=== PATIENT | male | born 1980 | race Caucasian/White ===

== ENCOUNTER 2017-09-28 08:22 | Inpatient (IN) | payer MEDICARE, OTHER ==
[2017-09-28] VITALS (10 sets, daily range): BP systolic 114–158; BP diastolic 60–91
[~2017-09-28] VITALS: Ht 170.2 cm; Wt 61.7 kg
--- NOTE | 2017-09-28 08:30 | NUR ---
aaox3, BBRA FROM HOME FOR N/V X THIS AM, BS-464. tachypneic. Skin is dry. Placed on monitor and will continuously monitor. awaiting MD for eval.
--- NOTE | 2017-09-28 08:41 | NUR ---
Dr Lyman at BS for eval.
[2017-09-28] MEDS ORDERED: ONDANSETRON HCL/PF 4 MG/2 ML VIAL ONE (08:50)
[2017-09-28] MEDS ORDERED: ONDANSETRON HCL/PF 4 MG/2 ML VIAL IVP ONE (09:00)
[2017-09-28] MEDS ORDERED: IV NS 0.9% 1,000 ML IV ONE (09:00)
[2017-09-28] MEDS ORDERED: IV NS 0.9% 1,000 ML BAG IV ONE (09:00)
[2017-09-28 09:13] LABS: BASOPHILS # (AUTO) 0.1 /CMM (0.0-0.2); BASOPHILS % (AUTO) 0.3 % (0.0-2.0); EOSINOPHILS # (AUTO) 0.1 /CMM (0.0-0.7); EOSINOPHILS % (AUTO) 0.4 % (0.0-6.0); HEMATOCRIT 51 % (39-51); HEMOGLOBIN 17.1 g/dL (13.5-17.5); LYMPHOCYTES # (AUTO) 2.2 /CMM (0.8-4.8); LYMPHOCYTES % (AUTO) 12.4 % (20.0-44.0); MEAN CORPUSCULAR HEMOGLOBIN 32 PG (26.0-33.0); MEAN CORPUSCULAR HGB CONC 34 g/dl (31.0-36.0); MEAN CORPUSCULAR VOLUME 95 fL (80-96); MONOCYTES % (AUTO) 5.9 % (2.0-12.0); NEUTROPHILS # (AUTO) 14.1 /CMM (1.8-8.9); PLATELET COUNT (AUTO) 334 /CMM (150-450); RDW COEFFICIENT OF VARIATION 12.1 (11.5-15.0); RED BLOOD CELL COUNT(AUTO) 5.34 MIL/uL (4.5-6.0); WHITE BLOOD COUNT (AUTO) 17.5 K/uL (4.3-11.0)
[2017-09-28 09:24] LABS: ALBUMIN 4.9 g/dL (3.4-5.0); BILIRUBIN,DIRECT 0.1 mg/dL (0.0-0.2); BILIRUBIN,TOTAL 0.7 mg/dL (0.2-1.0); CALCIUM, SERUM 11.4 mg/dL (8.5-10.1); CREATININE 1.7 mg/dL (0.6-1.3); POTASSIUM 5.6 mmol/L (3.5-5.1)
[2017-09-28] MEDS ORDERED: HYDROMORPHONE 1 MG/1 ML DISP.SYRIN IV ONE (09:30)
[2017-09-28] MEDS ORDERED: INSULIN REGULAR, HUMAN 100 UNIT in IV NS 0.9% 99 ML IV ONE ×2 (09:30)
[2017-09-28] MEDS ORDERED: HYDROMORPHONE 1 MG/1 ML DISP.SYRIN ONE (09:47)
[2017-09-28] MEDS ORDERED: HYDR-548 PO (10:19)
[2017-09-28] MEDS ORDERED: LISI2.5T2 PO (10:19)
[2017-09-28] MEDS ORDERED: INSU100V11 SQ (10:19)
[2017-09-28] MEDS ORDERED: ALPR1TAB2 PO (10:19)
[2017-09-28 12:11] LABS: CALCIUM, SERUM 9.6 mg/dL (8.5-10.1); CREATININE 1.6 mg/dL (0.6-1.3); PHOSPHORUS 4.7 mg/dL (2.5-4.9); POTASSIUM 5.2 mmol/L (3.5-5.1)
--- NOTE | 2017-09-28 12:28 | NUR ---
ICU ROOM 256
--- NOTE | 2017-09-28 12:55 | NUR ---
CALLED ICU FOR REPORT NO AVAILABLE BEDS AND NURSE CALLED NURSING GOURMET COFFEE ATTENDANT
--- NOTE | 2017-09-28 13:20 | NUR ---
GAVE REPORT TO [facility] ROOM [address] PORTER ADMITTING
--- NOTE | 2017-09-28 13:30 | NUR ---
PATIENT FINANCIAL SERVICES MANAGER- INITIAL ADMISSION NOTE RECEIVED PT FROM ER VIA [facility]D. PT A/O X3. ON ROOM AIR, RESPIRATIONS EVEN AND UNLABORED, NO SOB OR DISTRESS PRESENT. BEDSIDE MONITOR REVEALS SINUS TACHYCARDIA. TWO IVS PRESENT: 1) LAC 18G RUNNING INSULIN GTT AT 7.5 UNITS/HR AND 2) RAC 18G HL. BOTH IVS FLUSHED, PATENT, INTACT AND FREE OF REDNESS, SWELLING AND INFLAMMATION. PT CONTINENT OF STOOL & URINE, URINAL AT BEDSIDE. SAFETY MEASURES TAKEN: BED LOCKED AND IN LOW POSITION, SIDE RAILS UP X2, BED ALARM ON AND CALL LIGHT WITHIN REACH, WILL CONTINUE TO MONITOR.
[2017-09-28] MEDS ORDERED: IV NS 0.9% 1,000 ML IV PRN (14:00)
[2017-09-28] MEDS ORDERED: INSULIN REGULAR, HUMAN 100 UNIT in IV NS 0.9% 99 ML IV PRN ×2 (14:00)
[2017-09-28] MEDS: BLOOD SUGAR DIAGNOSTIC 1 EACH STRIP IN SCH ×10 (14:12→23:20)
[2017-09-28] MEDS ORDERED: MAG HYDROX/AL HYDROX/SIMETH 30 ML UDC PO PRN (14:30)
[2017-09-28] MEDS ORDERED: ZOLPIDEM TARTRATE 5 MG TABLET PO PRN (14:30)
[2017-09-28] MEDS ORDERED: Z GUARD REMEDY 2 OZ OINT TP PRN (14:30)
[2017-09-28] MEDS ORDERED: MORPHINE SULFATE INJ 2 MG/ML DISP.SYRIN IV PRN (14:30)
[2017-09-28] MEDS ORDERED: ACETAMINOPHEN 325 MG TABLET PO PRN (14:30)
[2017-09-28] MEDS ORDERED: HYDROCODONE/APAP 5/325MG 1 EACH TABLET PO PRN (14:30)
[2017-09-28] MEDS ORDERED: ONDANSETRON HCL/PF 4 MG/2 ML VIAL IVP PRN (14:30)
[2017-09-28] MEDS ORDERED: DEXTROSE 50%-WATER 50 ML DISP.SYRIN IV PRN (14:30)
[2017-09-28] MEDS ORDERED: MAGNESIUM HYDROXIDE 30 ML UDC PO PRN (14:30)
[2017-09-28] MEDS ORDERED: MORPHINE SULFATE INJ 4 MG/ML DISP.SYRIN IV PRN (15:30)
--- NOTE | 2017-09-28 16:10 | NUR ---
ICU/RN PT C/O OF PAIN 05/06.MORPHINE SULFATE 2 MG IV GIVEN ORDERED.UNABLE TO WASTE MEDICATION ,VIAL HAS 4 MG.PHARMACY -TEJ NOTIFIED.NEW ORDER PLACED.CONTINUE MONITORING.
[2017-09-28 17:38] LABS: CALCIUM, SERUM 9.3 mg/dL (8.5-10.1); CREATININE 1.4 mg/dL (0.6-1.3); POTASSIUM 4.8 mmol/L (3.5-5.1)
[2017-09-28] MEDS ORDERED: IV D5/0.45 NACL 1,000 ML IV SCH (18:30)
[2017-09-28] MEDS: IV D5/0.45 NACL 1,000 ML IV PRN (18:40)
--- NOTE | 2017-09-28 19:30 | NUR ---
RN NOTES RECEIVED PT ASLEEP WELL ON BED. NO ACUTE RESP DISTRESS SATING 96% IN RA. AOX4 WHEN AWAKE. TELE MONITOR READS ST HR 111. WITH IV SITE ON RAC G18 RUNNING WITH INSULIN DRIP @ 1 UNIT/HR AND LAC G 18 WITH D5 1/2 NS @ 125 ML/HR INTACT AND PATENT. PT IS ABLE TO MOVE ON BED. DENIES PAIN AT THIS TIME. CALL LIGHT WITHIN EASY REACH. REMINDED TO USE WHEN NEEDED. WILL CONTINUE TO MONITOR BS EVERY HOUR PROTOCOL FOLLOWS.
--- NOTE | 2017-09-28 20:10 | NUR ---
RN NOTES BS = 224 MG/DL PROTOCOL FOLLOW INSULIN DRIP CHANGED TO 3 UNITS/HR. WILL CONTINUE TO MONITOR. PT IS AWAKE AT THIS TIME WITH VISITOR AT BEDSIDE.
--- NOTE | 2017-09-28 21:12 | NUR ---
RN NOTES BS =218 MG/DL CONTINUE INSULIN DRIP 3 UNITS/HR
[2017-09-28 21:16] LABS: CREATININE 1.4 mg/dL (0.6-1.3); POTASSIUM 4.6 mmol/L (3.5-5.1)
[2017-09-28] MEDS ORDERED: MORPHINE SULFATE INJ 4 MG/ML DISP.SYRIN ONE (22:02)
[2017-09-28] MEDS: MORPHINE SULFATE INJ 2 MG/ML DISP.SYRIN IV PRN (22:04)
--- NOTE | 2017-09-28 23:15 | NUR ---
RN NOTES BS 239 MG/DL CONT. INSULIN DRIP @ 3U'/HR PROTOCOL FOLLOWS
[2017-09-28 23:20] LABS: APPEARANCE,URINE CLEAR (CLEAR); BILIRUBIN,URINE 1+ (NEGATIVE); BLOOD, URINE NEGATIVE Ery/uL (NEGATIVE); COLOR,URINE YELLOW (YELLOW); KETONES,URINE 3+ (NEGATIVE); LEUKOCYTE ESTERASE ,URINE NEGATIVE (NEGATIVE); NITRITE, URINE NEGATIVE (NEGATIVE); PROTEIN,URINE 1+ mg/dl (NEGATIVE); UGLUCOSE 2+ mg/dL (NEGATIVE); UROBILINOGEN,URINE 0.2 EU/dL (0.2)
[2017-09-28 23:25] LABS: BACTERIA,URINE Few /HPF (None Seen); HYALINE CASTS, URINE Few /LPF (None Seen); RBC,URINE 0-2 /HPF (0-2); SQUAMOUS EPITHELIAL CELL,UR Rare /HPF (None Seen); WBC,URINE 0-2 /HPF (0-3)
[2017-09-29] VITALS (24 sets, daily range): BP systolic 96–144; BP diastolic 53–91
--- NOTE | 2017-09-29 00:05 | NUR ---
RN NOTES BS 238 MG/DL CONTINUE INSULIN DRIP AT3 UNITS/HR
[2017-09-29] MEDS: BLOOD SUGAR DIAGNOSTIC 1 EACH STRIP IN SCH ×20 (00:10→21:35)
--- NOTE | 2017-09-29 01:15 | NUR ---
RN NOTES BS = 252 MG/DL INCREASED INSULIN DRIP @ 4UNITS/HR PER PROTOCOL
[2017-09-29 01:46] LABS: CALCIUM, SERUM 8.7 mg/dL (8.5-10.1); CREATININE 1.2 mg/dL (0.6-1.3); POTASSIUM 3.7 mmol/L (3.5-5.1)
[2017-09-29] MEDS: IV D5/0.45 NACL 1,000 ML IV PRN (03:18)
--- NOTE | 2017-09-29 04:10 | NUR ---
RN NOTES BS =198 MG/DL CONTINUE INSULIN DRIP @ 1UNIT/HR PER PROTOCOL
[2017-09-29] MEDS ORDERED: MORPHINE SULFATE INJ 4 MG/ML DISP.SYRIN ONE (04:31)
[2017-09-29] MEDS: MORPHINE SULFATE INJ 2 MG/ML DISP.SYRIN IV PRN (04:32)
--- NOTE | 2017-09-29 04:38 | NUR ---
RN NOTES PT COMPLAIN OF BACK PAIN AT SCALE OF 8/10 PRN PAIN MEDICINE GIVEN ORDERED.
[2017-09-29 05:15] LABS: BASOPHILS % (AUTO) 0.3 % (0.0-2.0); EOSINOPHILS # (AUTO) 0.2 /CMM (0.0-0.7); EOSINOPHILS % (AUTO) 1.2 % (0.0-6.0); HEMATOCRIT 40 % (39-51); HEMOGLOBIN 13.9 g/dL (13.5-17.5); LYMPHOCYTES # (AUTO) 3.3 /CMM (0.8-4.8); LYMPHOCYTES % (AUTO) 24.5 % (20.0-44.0); MEAN CORPUSCULAR HEMOGLOBIN 33 PG (26.0-33.0); MEAN CORPUSCULAR HGB CONC 34 g/dl (31.0-36.0); MEAN CORPUSCULAR VOLUME 95 fL (80-96); MONOCYTES # (AUTO) 0.8 /CMM (0.1-1.30); MONOCYTES % (AUTO) 6.2 % (2.0-12.0); NEUTROPHILS # (AUTO) 9.2 /CMM (1.8-8.9); NEUTROPHILS % (AUTO) 67.8 % (43.0-81.0); PLATELET COUNT (AUTO) 267 /CMM (150-450); RDW COEFFICIENT OF VARIATION 13.1 (11.5-15.0); RED BLOOD CELL COUNT(AUTO) 4.26 MIL/uL (4.5-6.0); WHITE BLOOD COUNT (AUTO) 13.5 K/uL (4.3-11.0)
[2017-09-29 05:27] LABS: CALCIUM, SERUM 8.8 mg/dL (8.5-10.1); CREATININE 1.1 mg/dL (0.6-1.3); MAGNESIUM 1.9 mg/dL (1.8-2.4); PHOSPHORUS 2.3 mg/dL (2.5-4.9); POTASSIUM 3.7 mmol/L (3.5-5.1)
--- NOTE | 2017-09-29 05:40 | NUR ---
RN NOTES CALLED AND SPOKE TO DR BILLY VERIFIED ORDER OF D5 1/5 NS + 40 MEQ KCL TO START TO GIVE WHEN POTASSIUM LEVEL <3.8. PER [employer] THERES NO D5 1/[address] BILLY WITH NEW ORDER TO GIVE D5 1/2 NS +40 Addendum: 09/29/17 at 0633 by LIZZIE CHAVIS RN TO GIVE D5 1/2 NS + 40 MEQ KCL INSTEAD. NOTED AND CARRIED OUT ORDERS. FAXED TO [facility] [facility] TO GET MEDS.
[2017-09-29] MEDS ORDERED: IV PREMIX D5 1/2NS + KCL 1,000 ML IV ONE (06:29)
[2017-09-29] MEDS: Potassium Chloride 40 MEQ in IV D5/0.45 NACL 1,000 ML IV PRN ×2 (06:36→15:26)
--- NOTE | 2017-09-29 07:20 | NUR ---
RN NOTES PT LATEST BS 234 MG/DL CONTINUE 3UNITS/HR OF INSULIN DRIP IN LAC AND D5 1/2 NS + 40 MEQ KCL @ 125 ML/HR TOLERATED WELL. PT ASLEEP WELL. NO SIGNIFICANT CHANGES NOTED. AFEBRILE. VS WNL. KEPT PT CLEAN AND DRY. ENDORSED CONTINUITY OF CARE TO AM NURSE.
--- NOTE | 2017-09-29 07:30 | NUR ---
RN NOTES RECEIVED PT IN BED, ASLEEP AT THIS TIME. AROUSABLE TO VERBAL AND TACTILE STIMULI. NO APPARENT DISTRESS NOTED. ON RA EZEQUIEL WELL. LATEST BS 234MG/DL, ONGOING INSULIN DRIP @3UNITS/HR , PT ON BS CHECK Q1H AND BMP Q4H. ONGOING IVF D51/2 NS +40 MEQS KCL@125ML/HR. IV LINES PATENT, FLUSHED WITH NS. WILL CLOSELY MONITOR
--- NOTE | 2017-09-29 08:02 | NUR ---
RN NOTES BS =204 MG/DL CONTINUE INSULIN DRIP 3 UNITS/HR (per algorithm #2)
--- NOTE | 2017-09-29 09:14 | NUR ---
RN NOTES BS =218 MG/DL CONTINUE INSULIN DRIP 3 UNITS/HR (per algorithm #2)
[2017-09-29 09:21] LABS: CALCIUM, SERUM 8.9 mg/dL (8.5-10.1); CREATININE 1.1 mg/dL (0.6-1.3); POTASSIUM 3.7 mmol/L (3.5-5.1)
[2017-09-29] MEDS: MORPHINE SULFATE INJ 4 MG/ML DISP.SYRIN IV PRN ×4 (09:35→22:08)
--- NOTE | 2017-09-29 10:00 | NUR ---
RN NOTES BS =204 MG/DL CONTINUE INSULIN DRIP 3 UNITS/HR (per algorithm #2)
--- NOTE | 2017-09-29 11:00 | NUR ---
RN NOTES BS =205 MG/DL CONTINUE INSULIN DRIP 3 UNITS/HR (per algorithm #2)
--- NOTE | 2017-09-29 12:00 | NUR ---
RN NOTES BS 177 MG/DL CHANGED INSULIN DRIP TO 1 UNIT/HR (per algorithm #2)
--- NOTE | 2017-09-29 13:00 | NUR ---
RN NOTES BS 178 MG/DL CONTINUE INSULIN DRIP 1 UNIT/HR (per algorithm #2)
--- NOTE | 2017-09-29 14:00 | NUR ---
RN NOTES BS 186 MG/DL CONTINUE INSULIN DRIP 1 UNIT/HR (per algorithm #2)
--- NOTE | 2017-09-29 14:12 | NUR ---
RN NOTES 1330 PT ATE LUNCH, CONSUMED 100% OF HIS MEAL. PER DR PORTER MAY RESTART HOME INSULIN PUMP. BS CHECK AFTER 30 MINS POST PRANDIAL NOTED BS 186MG/DL, BOLUS GIVEN VIA PATIENT INSULIN PUMP. PER DR PORTER MAY DC INSULIN DRIP IN [address]RS[address] PORTER, ASK MD TO REPLACE K+ 3.7, PER DR PORTER NO NEED TO REPLACE, PT IS ON IVF WITH POTASSIUM. WILL MONITOR CLOSELY. PT COMOFRTABLE IN BED, NO N/V NOTED. VERBALIZED UNDERSTANDING OF PLAN OF CARE.
--- NOTE | 2017-09-29 14:15 | NUR ---
RN NOTES SPOKE WITH DR PORTER,CLARIFIED IF NEEDED TO START SLIDING SCALE. PER NO SS, MAY RESTART HOME INSULIN.
[2017-09-29] MEDS ORDERED: K PHOS NEUTRAL 250 MG TABLET PO ONE (14:30)
--- NOTE | 2017-09-29 15:00 | NUR ---
RN NOTES BS 256 MG/DL CHANGED INSULIN DRIP TO 3 UNITS/HR (per algorithm #2) PT ALSO RECEIVED BOLUS FROM HIS OWN INSULIN PUMP PER DR PORTER ORDER.
--- NOTE | 2017-09-29 16:12 | NUR ---
RN NOTES BS 186MG/DL CHANGED INSULIN DRIP TO @1UNIT/HR
--- NOTE | 2017-09-29 17:45 | NUR ---
RN NOTES BS NOTED 100MG/DL. OFF INSULIN DRIP NOW. PER DR GERMAN RIBEIRO TO TRANSFER PT TO TELE. CHARGE NURSE BRITTNEY MADE AWARE, AWAITING FOR TELE BED
--- NOTE | 2017-09-29 19:20 | NUR ---
RN NOTES PT ASLEEP ON BED EASILY AROUSABLE. AOX4 ABLE TO MAKE KNOWN NEEDS. BREATHING EVEN AND UNLABORED IN RA. SATING 98%. WARMTH TO TOUCH. AFEBRILE. IV SITE ON RAC G 18 AND LAC G 18 INTACT AND PATENT RUNNING WITH D5 1/2 NS ! 125 CC/HR OFF FROM INSULIN PUMP. PT HAS NO S/S OF HYPO OR HYPERGLYCEMIA AT THIS TIME. WILL CONTINUE TO MONITOR BS ORDERED. KEPT PT CLEAN AND DRY. REMINDED TO USED EVY LIGHT WHEN NEEDED ASSISTANCE CALL LIGHT KEPT WITHIN EASY REACH. WILL CONTINUE TO MONITOR.
[2017-09-29] MEDS ORDERED: DEXTROSE 50%-WATER 50 ML DISP.SYRIN IV PRN (19:30)
[2017-09-29] MEDS ORDERED: *INSULIN REGULAR(HUMULIN R)HUM 100 UNIT/ML VIAL SQ PRN (19:30)
[2017-09-29] MEDS ORDERED: INSULIN REGULAR, HUMAN 100 UNIT/ML 3 ML VIAL SQ PRN (19:30)
--- NOTE | 2017-09-29 21:45 | NUR ---
RN NOTES BS =263 MG/DL PER SLIDING SCALE TO GIVE 6 UNITS OF INSULIN. PT SELF ADMINISTERED 4.2 UNITS FORM HIS OWN INSULIN PUMP AND ADMINISTERED 1.8 UNITS TOTAL OF 6 UNITS. PT IS AWARE WILL CONTINUE TO MONITOR NO S/S OF HYPO OR HYPERGLYCEMIA
[2017-09-30] VITALS (8 sets, daily range): BP systolic 110–157; BP diastolic 61–95
[2017-09-30] MEDS: Potassium Chloride 40 MEQ in IV D5/0.45 NACL 1,000 ML IV PRN (00:15)
[2017-09-30] MEDS: MORPHINE SULFATE INJ 4 MG/ML DISP.SYRIN IV PRN ×2 (03:12→08:24)
[2017-09-30 05:25] LABS: BASOPHILS # (AUTO) 0.2 /CMM (0.0-0.2); BASOPHILS % (AUTO) 2.1 % (0.0-2.0); EOSINOPHILS # (AUTO) 0.3 /CMM (0.0-0.7); EOSINOPHILS % (AUTO) 3.2 % (0.0-6.0); HEMATOCRIT 42 % (39-51); HEMOGLOBIN 14.1 g/dL (13.5-17.5); LYMPHOCYTES # (AUTO) 2.9 /CMM (0.8-4.8); LYMPHOCYTES % (AUTO) 36.2 % (20.0-44.0); MEAN CORPUSCULAR HEMOGLOBIN 32 PG (26.0-33.0); MEAN CORPUSCULAR HGB CONC 34 g/dl (31.0-36.0); MEAN CORPUSCULAR VOLUME 94 fL (80-96); MONOCYTES # (AUTO) 0.6 /CMM (0.1-1.30); MONOCYTES % (AUTO) 7.2 % (2.0-12.0); NEUTROPHILS # (AUTO) 4.1 /CMM (1.8-8.9); NEUTROPHILS % (AUTO) 51.3 % (43.0-81.0); PLATELET COUNT (AUTO) 252 /CMM (150-450); RED BLOOD CELL COUNT(AUTO) 4.44 MIL/uL (4.5-6.0); WHITE BLOOD COUNT (AUTO) 8.1 K/uL (4.3-11.0)
[2017-09-30 05:40] LABS: CALCIUM, SERUM 8.9 mg/dL (8.5-10.1); CREATININE 0.8 mg/dL (0.6-1.3); POTASSIUM 3.6 mmol/L (3.5-5.1)
--- NOTE | 2017-09-30 05:40 | NUR ---
TELE/RN RECEIVE PATIENT FROM ICU BY WHEELCHAIR. PATIENT IS AWAKE, ALERT, ORIENTED, COMFORTABLE, NO C/O PAIN, NO S/S OF HYPER/HYPOGLYCEMIA, MADE COMFORTABLE IN BED. IVF RE STARTED. WILL MONITOR.
--- NOTE | 2017-09-30 05:50 | NUR ---
RN NOTES TRANSFER PT VIA WHEELCHAIR TO TELE ROOM 313-1 IN STABLE CONDITION PT IS AOX3 AWARE REGARDING TRANSFER. REPORT GIVEN TO MATTHEW NGUYEN FOR CONTINUITY OF CARE.
--- NOTE | 2017-09-30 06:24 | NUR ---
TELE/RN ACCU CHECK BLOOD SUGAR=70, PATIENT IS ASYMPTOMATIC, BUT PATIENT WANTS APPLE JUICE. APPLE JUICE GIVEN.
[2017-09-30] MEDS: BLOOD SUGAR DIAGNOSTIC 1 EACH STRIP IN SCH ×2 (06:29→11:17)
--- NOTE | 2017-09-30 07:00 | NUR ---
RN NOTES: PATIENT AOX4. RESTING IN BED. NO SIGNS OF DISTRESS NOTED. NONLABORED BREATHING ON ROOM AIR. IV SITES PATENT AND INTACT. PATIENT SINUS ON MONITOR. BED IN LOWEST LOCKED POSITION, CALL LIGHT WITHIN REACH. WILL CONTINUE TOMONTIOR
--- NOTE | 2017-09-30 12:55 | NUR ---
RN NOTES; PATIENT DISCHARGED HOME PER MD ORDERS. PATIENT STABLE. NONLABORED BREATHING NOTED ON ROOM AIR. VS WNL. BLOOD SUGAR WNL. PATIENT ATE LUNCH BEFORE LEAVING. IV LINES REMOVED BEFORE DISCHARGE. INCISION ON LEFT FOOT REMOVED BY DR PORTER. NO SIGNS OF DISTRESS. PICTURE PLACED IN CHART. PATIENT EDUCATED ON KEEPING THE SITE CLEAN AND DRY. EDUCATED ON EXISTCARE, VERBALIZES UNDERSTANDING. CONTACTED CASE MANAGEMENT PER DR PORTER'S ORDERS FOR A LIST OF ENDOCRINOLOGISTS TO VISIT AFTER DISCHARGE, LEFT A VOICEMAIL. PATIENT HOWEVER, REFUSED TO WAIT FOR THE LIST, STATED THAT HE WILL VISIT HIS REGULAR ONE. PATIENT EDUCATED AND BENEFITS AND RISKS EXPLAINED. PATIENT STILL REFUSED TO WAIT. PATIENT LEFT WITH BROTHER VIA PRIVATE CAR, STAFF MEMBER ACCOMPANIED HIM TO CAR. ALL BELONGINGS GIVEN TO PATIENT .
== END 2017-09-30 13:00 | disposition home or self-care (01) | DRG 637 ==
LOC: ER 08:25 → ICU 12:42 → MED 09-30 05:14 → TELE 09-30 06:23
PROVIDERS: ADMIT Family Medicine; ATTEND Family Medicine
DX: E10.10 Type 1 diabetes mellitus with ketoacidosis without coma (principal); N17.0 Acute kidney failure with tubular necrosis; E87.1 Hypo-osmolality and hyponatremia; F10.988 Alcohol use, unspecified with other alcohol-induced disorder; E87.5 Hyperkalemia; Z79.4 Long term (current) use of insulin; D72.829 Elevated white blood cell count, unspecified; I10 Essential (primary) hypertension; J45.909 Unspecified asthma, uncomplicated; Z87.891 Personal history of nicotine dependence; Y90.9 Presence of alcohol in blood, level not specified; B34.9 Viral infection, unspecified
CPT/HCPCS: 36415; 71045-TC; 80048-TC; 80061-TC; 80076-TC; 81000-TC; 82010-TC; 82962-TC; 83690-TC; 83735-TC; 84100-TC; 85025-TC; 86850-TC; 87081-TC; A4606; J1170; J1815; J2270; J2405; J3480; J3490; J7030; Z7610

== ENCOUNTER 2019-09-01 23:16 | Inpatient (IN) | payer MEDICARE, OTHER ==
[~2019-09-01] VITALS: Ht 170.2 cm; Wt 72.6 kg
[~2019-09-01 23:16] MED LIST: ALPR1TAB2 PO; HYDR-4354 PO; INSU100V11 SQ; LISI2.5T2 PO
[2019-09-01] MEDS ORDERED: ONDANSETRON HCL/PF 4 MG/2 ML VIAL ONE (23:24)
[2019-09-01] MEDS ORDERED: INSULIN REGULAR, HUMAN 100 UNIT/ML 10 ML VIAL ONE (23:24)
[2019-09-01] MEDS ORDERED: INSULIN REGULAR, HUMAN 100 UNIT/ML 10 ML VIAL IV ONE (23:30)
[2019-09-01] MEDS ORDERED: ONDANSETRON HCL/PF 4 MG/2 ML VIAL IVP ONE (23:30)
[2019-09-01] MEDS ORDERED: IV NS 0.9% 1,000 ML BAG IV ONE (23:30)
[2019-09-01] MEDS ORDERED: MORPHINE SULFATE INJ 2 MG/ML DISP.SYRIN IV ONE (23:30)
--- NOTE | 2019-09-01 23:40 | NUR ---
PITER FROM HOME TO ER BED 8. AAO. BREATHING RAPID AND SHALLOW BREATHING. BROUGHT IN ON GURNEY. C/O EPIGASTRIC PAIN X 2 HOURS POURER CRANE LADLE, RATED 10/10 SHARP. PT ALSO WAS REPORTED TO HAVE NAUSEA AND VOMMITING WHICH IS NOTED WITH DARK RED BLOOD APPROX 200ML IN EMESIS BAG. PT WAS GIVEN 200ML NS VIA IV BY EMS EN ROUTE TO ER WELL ZOFRAN 4MG VIA IV. MD WAS AT BEDSIDE FOR EVAL ORDERS RECEIVED, NOTED AND CARRIED OUT. IV LINE OBTAINED ON THE R AC 16G. BLOOD DRAWN AND GIVENT OT LAB TECEH AT BEDSIDE. ACCUCHECK ALSO DONE
[2019-09-01] MEDS ORDERED: MORPHINE SULFATE INJ 4 MG/ML DISP.SYRIN ONE (23:41)
[2019-09-01 23:49] LABS: BASOPHILS # (AUTO) 0.1 /CMM (0.0-0.2); BASOPHILS % (AUTO) 0.4 % (0.0-2.0); EOSINOPHILS % (AUTO) 0.1 % (0.0-6.0); HEMATOCRIT 46 % (39-51); HEMOGLOBIN 14.7 g/dL (13.5-17.5); LYMPHOCYTES # (AUTO) 1.9 /CMM (0.8-4.8); LYMPHOCYTES % (AUTO) 9.9 % (20.0-44.0); MEAN CORPUSCULAR HGB CONC 32 g/dl (31.0-36.0); MEAN CORPUSCULAR VOLUME 97 fL (80-96); MONOCYTES # (AUTO) 0.9 /CMM (0.1-1.30); MONOCYTES % (AUTO) 4.7 % (2.0-12.0); NEUTROPHILS # (AUTO) 16.7 /CMM (1.8-8.9); NEUTROPHILS % (AUTO) 84.9 % (43.0-81.0); PLATELET COUNT (AUTO) 290 /CMM (150-450); RED BLOOD CELL COUNT(AUTO) 4.77 MIL/uL (4.5-6.0); WHITE BLOOD COUNT (AUTO) 19.7 K/uL (4.3-11.0)
[2019-09-02] VITALS (22 sets, daily range): BP systolic 124–175; BP diastolic 61–101
--- NOTE | 2019-09-02 00:01 | NUR ---
TO RADIOLOGY ON [facility]
[2019-09-02 00:07] LABS: APPEARANCE,URINE Clear (CLEAR); BILIRUBIN,URINE Negative (NEGATIVE); BLOOD, URINE Trace-lysed Ery/uL (NEGATIVE); COLOR,URINE Yellow (YELLOW); KETONES,URINE 80 (NEGATIVE); LEUKOCYTE ESTERASE ,URINE Negative (NEGATIVE); NITRITE, URINE Negative (NEGATIVE); PROTEIN,URINE Negative (NEGATIVE); UGLUCOSE 500 MG/DL mg/dL (NEGATIVE); UROBILINOGEN,URINE 0.2 EU/dL (0.2)
[2019-09-02 00:16] LABS: ALANINE AMINOTRANSFERASE 41 U/L (12-78); ALBUMIN 4.3 g/dL (3.4-5.0); ALKALINE PHOSPHATASE 141 U/L (46-116); ASPARTATE AMINOTRANSFERASE 25 U/L (15-37); BILIRUBIN,DIRECT 0.1 mg/dL (0.0-0.2); BILIRUBIN,TOTAL 0.7 mg/dL (0.2-1.0); CALCIUM, SERUM 10.3 mg/dL (8.5-10.1); CARBON DIOXIDE 18 mmol/L (21-32); CHLORIDE 90 mmol/L (98-107); CREATININE 1.9 mg/dL (0.6-1.3); LIPASE 36 U/L (73-393); POTASSIUM 5.2 mmol/L (3.5-5.1); SODIUM SERUM 134 mmol/L (136-145); TOTAL PROTEIN, SERUM 7.9 g/dL (6.4-8.2); UREA NITROGEN, BLOOD 37 mg/dL (7-18)
[2019-09-02 00:17] LABS: GLUCOSE 600 mg/dL (74-106)
[2019-09-02 00:24] LABS: BACTERIA,URINE Rare /HPF (None Seen); SQUAMOUS EPITHELIAL CELL,UR Few /HPF (None Seen); WBC,URINE NONE SEEN /HPF (0-3)
--- NOTE | 2019-09-02 00:25 | NUR ---
PT ASSIGNED TO 261
[2019-09-02] MEDS ORDERED: IV NS 0.9% 500 ML BAG IV ONE (00:30)
[2019-09-02] MEDS ORDERED: IV NS 0.9% 1,000 ML BAG IV ONE (00:30)
[2019-09-02] MEDS ORDERED: INSULIN REGULAR, HUMAN 100 UNIT in IV NS 0.9% 99 ML IV PRN ×4 (00:30→02:00)
--- NOTE | 2019-09-02 00:44 | NUR ---
FLORINDA CALLED FOR CXR ABD ABD CT RESULT
[2019-09-02] MEDS ORDERED: PIPERACILLIN /TAZOBACTAM 3.375 G in IV D5W 50 ML IV STA (01:10)
--- NOTE | 2019-09-02 01:12 | NUR ---
CALLED DR. MAURER (RN CVICU SURGERY) [phone]. DR. QUINTERO SPEAKING DR. MAURER.
[2019-09-02] MEDS ORDERED: MORPHINE SULFATE INJ 4 MG/ML DISP.SYRIN ONE (01:13)
[2019-09-02] MEDS ORDERED: PIPERACILLIN /TAZOBACTAM 3.375 G VIAL IV ONE (01:13)
--- NOTE | 2019-09-02 01:16 | NUR ---
CALLED [facility] FOR PANEL ADMISSION.
--- NOTE | 2019-09-02 01:23 | NUR ---
LISA Malone speaking to dr. coulter regard plan of care/ admission.
[2019-09-02] MEDS ORDERED: MORPHINE SULFATE INJ 4 MG/ML DISP.SYRIN IV PRN (01:30)
[2019-09-02] MEDS ORDERED: IV NS 0.9% 1,000 ML IV SCH (01:39)
--- NOTE | 2019-09-02 01:39 | NUR ---
REPORT GIVEN TO ED, RN FOR NEHEMIAS. PLEASE SEND PT ONCE ORDER FROM YONATHAN IS PLACED
[2019-09-02] MEDS ORDERED: ACETAMINOPHEN 650 MG/SUPP.RECT RC PRN (02:00)
[2019-09-02] MEDS ORDERED: MORPHINE SULFATE INJ 2 MG/ML DISP.SYRIN IV PRN (02:00)
[2019-09-02] MEDS ORDERED: ONDANSETRON HCL/PF 4 MG/2 ML VIAL IVP PRN (02:00)
--- NOTE | 2019-09-02 02:17 | NUR ---
PT TRANSPORTED TO UNIT ON [facility] W/ RN AND EMT AT BEDSIDE USING ACLS PROTOCOL. NAD NOTED DURING TRANSPORT.
[2019-09-02] MEDS: HYDROMORPHONE INJ 2 MG/ML DISP.SYRIN IV PRN ×2 (02:35→06:32)
[2019-09-02] MEDS ORDERED: VANCOMYCIN 500 MG VIAL ONE (02:38)
[2019-09-02] MEDS ORDERED: VANCOMYCIN 1 GM VIAL ONE (02:40)
[2019-09-02] MEDS ORDERED: VANCOMYCIN 1.5 GM in IV NS 0.9% 500 ML IV SCH (03:00)
[2019-09-02] MEDS ORDERED: IV NS 0.9% 1,000 ML IV STA (03:01)
[2019-09-02] MEDS: PANTOPRAZOLE 40 MG VIAL IV SCH ×2 (04:35→16:24)
[2019-09-02 05:29] LABS: CALCIUM, SERUM 8.2 mg/dL (8.5-10.1); CREATININE 1.1 mg/dL (0.6-1.3); POTASSIUM 3.9 mmol/L (3.5-5.1)
--- NOTE | 2019-09-02 05:51 | NUR ---
PT WAS ADMITTED FROM ER WITH DIAGNOSIS SEPSIS, APPENDICITIS, DKA. PT IS AWAKE, ALERT, ORIENTED. C/O OF ABDOMINAL PAIN , N/V. ON ADMISSION BS 600, LACTIC ACID 6.9. STARTED INSULIN DRIP WITH ACCU-CHEK Q 1 HOUR, USING KRYSTIAN ASPEN FORMULA BS X 2 : 100. PT WAS GIVEN TOTALLY 3.5 L OF NS BOLUS. ABDOMEN IS DISTENDED, TENDER, NO BOWEL SOUNDS. CT ABDOMEN/PELVIS -APPENDICEAL TUMOR WITH SECONDARY APPENDICITIS. PT IS SUPPOSED TO HAVE LAP. APPENDECTOMY AT 8 A.M. BY Mingo MAURER. NGT INSERTED & CONNECTED WITH LIS. VOIDS SUFFICIENT AMT. OF CLEAR URINE. VSS. AFEBRILE, SCOPE-ST. PT IS NPO.
[2019-09-02] MEDS: POTASSIUM CL. PREMIX PERIPHER. 50 ML IV SCH ×4 (06:15→12:17)
[2019-09-02 06:20] LABS: MAGNESIUM 1.9 mg/dL (1.8-2.4); PHOSPHORUS 1.8 mg/dL (2.5-4.9)
[2019-09-02 07:29] LABS: BASOPHILS # (AUTO) 0.1 /CMM (0.0-0.2); BASOPHILS % (AUTO) 0.6 % (0.0-2.0); EOSINOPHILS % (AUTO) 0.1 % (0.0-6.0); HEMATOCRIT 39 % (39-51); HEMOGLOBIN 12.9 g/dL (13.5-17.5); LYMPHOCYTES # (AUTO) 3.1 /CMM (0.8-4.8); LYMPHOCYTES % (AUTO) 18.2 % (20.0-44.0); MEAN CORPUSCULAR HGB CONC 33 g/dl (31.0-36.0); MEAN CORPUSCULAR VOLUME 94 fL (80-96); MONOCYTES # (AUTO) 1.9 /CMM (0.1-1.30); MONOCYTES % (AUTO) 11.2 % (2.0-12.0); NEUTROPHILS # (AUTO) 11.7 /CMM (1.8-8.9); NEUTROPHILS % (AUTO) 69.9 % (43.0-81.0); PLATELET COUNT (AUTO) 256 /CMM (150-450); RED BLOOD CELL COUNT(AUTO) 4.16 MIL/uL (4.5-6.0); WHITE BLOOD COUNT (AUTO) 16.8 K/uL (4.3-11.0)
--- NOTE | 2019-09-02 07:30 | NUR ---
ICU/RN INITIAL NOTES,AM RECEIVED BEDSIDE REPORT FROM NIGHT NURSE. PT ALERT, AWAKE, RESTING IN BED. PT ON NASAL CANULA, NO DISTRESS. PT SCHEDULED FOR SURGERY. PT AWAITING FOR TO EXPLAIN PROCEDURE PRIOR TO SIGNING CONSENTS. PT SINUS 99 ON TELE. NG TUBE IN PLACE, CONNECTED TO LIS. PT CURRENTLY NPO FOR PROCEDURE. PIV PATENT AND INTACT, IV FLUIDS INFUSING ORDERED. PT ON INSULIN DRIP, INFUSING PER PROTOCOL. ALL NEEDS WILL BE ATTENDED TO, SAFETY MEASURES TAKEN, BED IN LOW POSITION, SIDE RAILS UP, CALL LIGHT WITHIN REACH. WILL CONTINUE CARE.
[2019-09-02] MEDS: BLOOD SUGAR DIAGNOSTIC 1 EACH STRIP IN SCH ×9 (08:00→16:13)
--- NOTE | 2019-09-02 08:15 | NUR ---
ICU/RN: OR TEAM AT BEDSIDE. SPOKE TO PT, CONSENT SIGNED AND PLACED IN CHART. PT TAKEN TO OR.
[2019-09-02] MEDS ORDERED: MIDAZOLAM HCL 2 MG/2ML VIAL ONE (08:18)
[2019-09-02] MEDS ORDERED: FENTANYL PF 250MCG/5ML AMPUL ONE (08:18)
[2019-09-02] MEDS ORDERED: FAMOTIDINE/PF INJ 20 MG/2 ML VIAL IV ONE (08:19)
[2019-09-02] MEDS ORDERED: ROCURONIUM BROMIDE 50 MG/5 ML ONE (08:19)
[2019-09-02 08:42] LABS: CALCIUM, SERUM 8.1 mg/dL (8.5-10.1); CREATININE 1.1 mg/dL (0.6-1.3); POTASSIUM 4.1 mmol/L (3.5-5.1)
[2019-09-02] MEDS ORDERED: PIPERACILLIN /TAZOBACTAM 3.375 G in IV D5W 100 ML IV SCH ×2 (09:00→10:00)
[2019-09-02] MEDS ORDERED: PANTOPRAZOLE 40 MG VIAL IV SCH (09:00)
[2019-09-02] MEDS ORDERED: LIDOCAINE HCL/MPF 1% 30 ML VIAL IJ ONE (09:04)
[2019-09-02] MEDS ORDERED: BUPIVACAINE MPF 0.5% W/EPI INJ 30 ML VIAL ONE (09:05)
[2019-09-02] MEDS ORDERED: FEE PK DOSING 1 MIN EA MC ONE (09:12)
--- NOTE | 2019-09-02 11:10 | NUR ---
ICU/RN: PT BACK TO ROOM FROM OR. LAP APPY DONE. PT ALERT, AWAKE, FOLLOWS COMMAND. NO DISTRESS. WILL CONTINUE TO MONITOR. PT CONTINUES ON INSULIN DRIP.
[2019-09-02] MEDS ORDERED: Potassium Chloride 20 MEQ in IV D5/0.45 NACL 1,000 ML IV PRN (11:30)
[2019-09-02] MEDS: HYDROMORPHONE 1 MG/1 ML DISP.SYRIN IV PRN ×4 (11:36→22:30)
[2019-09-02] MEDS: VANCOMYCIN 1 GM in IV D5W 250 ML IV SCH ×2 (12:17→18:00)
[2019-09-02 12:32] LABS: CALCIUM, SERUM 7.7 mg/dL (8.5-10.1); CREATININE 1.1 mg/dL (0.6-1.3); POTASSIUM 4.4 mmol/L (3.5-5.1)
[2019-09-02] MEDS ORDERED: PIPERACILLIN /TAZOBACTAM 3.375 G in IV D5W 50 ML IV SCH (12:32)
[2019-09-02] MEDS ORDERED: INSULIN REGULAR, HUMAN 100 UNIT/ML 3 ML VIAL SQ PRN (15:00)
[2019-09-02] MEDS ORDERED: DEXTROSE 50%-WATER 50 ML DISP.SYRIN IV PRN (15:00)
[2019-09-02] MEDS: PIPERACILLIN /TAZOBACTAM 3.375 G in IV D5W 50 ML IV SCH ×2 (15:52→21:48)
[2019-09-02] MEDS ORDERED: K PHOS NEUTRAL 250 MG TABLET PO ONE (16:00)
--- NOTE | 2019-09-02 16:00 | NUR ---
ICU/RN: INSULIN DRIP OFF, BLOOD GLUCOSE 127. PT NOW ON MODERATE SCALE, WITH COVERAGE AND LANTUS.
[2019-09-02] MEDS: BLOOD SUGAR DIAGNOSTIC 1 EACH STRIP VI SCH ×2 (17:42→21:39)
[2019-09-02] MEDS: *INSULIN REGULAR(HUMULIN R)HUM 100 UNIT/ML VIAL SQ PRN ×2 (17:45→21:45)
--- NOTE | 2019-09-02 19:18 | NUR ---
ICU/RN ENDING NOTES,AM BEDSIDE REPORT ENDORSED TO NIGHT NURSE FOR NEHEMIAS. PT RESTING. ON ROOM AIR, SINUS ON TELE. LAP APPY DONE. PAIN MEDICATIONS NEEDED. WILL CONTINUE CARE. SAFETY MEASURES TAKEN, BED IN LOW POSITION, SIDE RAILS UP, CALL LIGHT WITHIN REACH.
--- NOTE | 2019-09-02 20:00 | NUR ---
PS IN BED A/O X4 ABLE TO MAKE NEEDS KNOWN , S/P LAP APPENDECTOMY , WITH 3 ABDOMINAL INCISION NO BLEEDING NOTED , ON TELE SR 68 WITH ELEVATED T WAVE ON THE MONITOR ,V/S STABLE AFEBRILE , ON RAC G#16 AND LEFT HAND G#18 INTACT AND PATENT , USING URINALS . DUE MEDS GIVEN ORDERED , ALL DUE MEDS GIVEN ORDERED , CALL LIGHT WITHIN REACH , DUE PAIN MEDS GIVEN ORDERED PAIN 8/10 WITH EFFECT .WILL CONTINUE TO MONITOR PT.
[2019-09-02] MEDS ORDERED: INSULIN GLARGINE, 100 UNIT/ML CARTRIDGE SQ SCH (22:00)
--- NOTE | 2019-09-02 22:00 | NUR ---
BLOOD SUGAR AT 22OOHRS IS 332MG/DL LANTUS 15 UNITS GIVEN ORDERED AND 8 UNITS OF REGULAR INSULIN GIVEN PER SLIDING SCALE.
[2019-09-03] VITALS (17 sets, daily range): BP systolic 119–159; BP diastolic 57–93
[2019-09-03] MEDS: HYDROMORPHONE 1 MG/1 ML DISP.SYRIN IV PRN ×7 (01:27→20:23)
[2019-09-03] MEDS: VANCOMYCIN 1 GM in IV D5W 250 ML IV SCH (02:24)
[2019-09-03] MEDS: PIPERACILLIN /TAZOBACTAM 3.375 G in IV D5W 50 ML IV SCH ×4 (03:59→21:14)
--- NOTE | 2019-09-03 04:30 | NUR ---
c/o abdominal pain 05/06 , due pain meds given with effect , abdominal incision is dry no bleeding noted. v/s stable afebrile.
--- NOTE | 2019-09-03 05:00 | NUR ---
spoke to leah from lab re vanco trough result done at 340am ,told him why he took the vanco trough at 340am and theres no order for that ,vanco trough should be done supposed to be 10am ,dose for vanco at 3am dose still running at that time.
--- NOTE | 2019-09-03 07:02 | NUR ---
spoke to jonathan from pharmacy made aware of early draw for vanco trough , said she gonna talk to lab ,and she gonna take care of it.endorse to kassandra tapia day shift to follow up vanco trough at 10 am.
[2019-09-03] MEDS: BLOOD SUGAR DIAGNOSTIC 1 EACH STRIP VI SCH ×4 (07:30→21:45)
[2019-09-03] MEDS: *INSULIN REGULAR(HUMULIN R)HUM 100 UNIT/ML VIAL SQ PRN (07:47)
--- NOTE | 2019-09-03 08:00 | NUR ---
RN NOTE RECEIVED PATIENT AWAKE, ALERT AND ORIENTED. SATING WELL ON ROOM AIR/ SINUS RHYTHM ON TELE MONITOR. SKIN IS WARM AND DRY.SAFETY PRECAUTIONS IN PLACE.
--- NOTE | 2019-09-03 09:30 | NUR ---
RN NOTE PATIENT COMPLAINS THAT PAIN MEDICATION ISN'T HELPING. MD MADE AWARE. PER MD CAN STOP INSULIN ORDERS BECAUSE PATIENT IS USING INSULIN PUMP FROM HOME.
[2019-09-03 09:38] LABS: BASOPHILS # (AUTO) 0.2 /CMM (0.0-0.2); BASOPHILS % (AUTO) 1.3 % (0.0-2.0); EOSINOPHILS % (AUTO) 0.3 % (0.0-6.0); HEMATOCRIT 37 % (39-51); HEMOGLOBIN 12.2 g/dL (13.5-17.5); LYMPHOCYTES % (AUTO) 19.5 % (20.0-44.0); MEAN CORPUSCULAR HGB CONC 33 g/dl (31.0-36.0); MEAN CORPUSCULAR VOLUME 95 fL (80-96); MONOCYTES # (AUTO) 1.1 /CMM (0.1-1.30); MONOCYTES % (AUTO) 7.1 % (2.0-12.0); NEUTROPHILS # (AUTO) 11.2 /CMM (1.8-8.9); NEUTROPHILS % (AUTO) 71.8 % (43.0-81.0); PLATELET COUNT (AUTO) 209 /CMM (150-450); RED BLOOD CELL COUNT(AUTO) 3.88 MIL/uL (4.5-6.0); WHITE BLOOD COUNT (AUTO) 15.6 K/uL (4.3-11.0)
[2019-09-03] MEDS: PANTOPRAZOLE 40 MG VIAL IV SCH ×2 (09:48→16:25)
[2019-09-03 10:34] LABS: CALCIUM, SERUM 8.8 mg/dL (8.5-10.1); CREATININE 0.9 mg/dL (0.6-1.3); POTASSIUM 3.7 mmol/L (3.5-5.1)
--- NOTE | 2019-09-03 11:15 | NUR ---
RN NOTE PATIENT TRANSFERRED TO MED/SURG
--- NOTE | 2019-09-03 11:30 | NUR ---
MS 2 SECURITY SOLUTIONS ENGINEER NOTES RECEIVED PT TRANSFERRED FROM ICU VIA WHEELCHAIR.RECEIVED REPORT FROM ESTRELLACOMMUNITY MARKETING MANAGER.PT IS ALERT AND ORIENTED X4.VERBALLY RESPONSIVE AND DENIES ANY DISTRESS.NO SOB ON ROOM AIR.AMBULATES AD [place] WITH STEADY GAIT.WITH BRP.PT ANXIOUS WITH HIS PAIN MEDS ASKING FOR HIS DILAUDID DOSE WHEN IT WAS JUST GIVEN AN HOUR AGO.EXPLAINED TO THE PT THAT ITS NOT YET DUE AT THIS TIME.CALL LIGHT PLACED WITHIN REACH.
[2019-09-03 12:06] LABS: BAND % (MANUAL) 2 % (0.0-5.0); EOSINOPHILS % (MANUAL) 1 % (0-4); LYMPHOCYTES % (MANUAL) 17 % (16-48); MONOCYTES % (MANUAL) 7 % (0-11.0); NEUTROPHILS % (MANUAL) 73 (42-76)
--- NOTE | 2019-09-03 15:53 | NUR ---
CALLED [facility] IN [facility] BECAUSE THE [facility] [facility] IN [facility] IS ALREADY CLOSED.CLARIFIED PT'S HOME MEDS AND STATED THAT PT IS TAKING TEMAZEPAM 15 MG PO AT HS PRN INSOMNIA, XANAX 1 MG TAB PO BID AND BUSPIRONE 10 MG I TAB PO BID.CLARIFIED WITH DR PORTER WHO STATED TO CONTINUE THE HOME MEDS.
[2019-09-03] MEDS ORDERED: TEMAZEPAM 15 MG CAPSULE PO PRN (16:00)
[2019-09-03] MEDS: ALPRAZOLAM 0.5 MG TABLET PO SCH (16:25)
[2019-09-03] MEDS: busPIRone 5 MG TABLET PO SCH (16:25)
--- NOTE | 2019-09-03 16:38 | NUR ---
AT 1540: PT CAME BACK FROM GETTING FRESH AIR OUTSIDE ACCOMPANIED BY THE PHYSICAL THERAPIST,PT STARTED C/O FEELING HYPOGLYCEMIA.BS CHECKED WITH 53 RESULT. 1 ORANGE JUICE AND 1 RAMOS CRACKER GIVEN. AT 1638: RECHECKED PT'S BLOOD SUGAR :113 RESULT.PT WAS HAVING SPONGE BATH IN THE TOILET AND CHANGED HIS HOSPITAL GOWN,FRESHENING UP WITH THE ASSISTANCE OF HIS GIRLFRIEND.DENIES ANY PAIN OR DISTRESS.IV H/L IN THE LEFT HAND GOT PULLED OUT AND REMOVED WITH NO BLEEDING NOTED.PT STILL HAS RT AC H/L INTACT AND PATENT.
--- NOTE | 2019-09-03 18:00 | NUR ---
PT RESTING IN BED WITH FRIENDS AT THE BEDSIDE.DENYING ANY PAIN OR DISTRESS AT THIS TIME.CALL LIGHT PLACED WITHIN REACH.
--- NOTE | 2019-09-03 19:26 | NUR ---
RN OPENING NOTES RECEIVED PATIENT IN BED. A/O X 4. ABLE TO STATE NEEDS CLEARLY. NO SIGNS OF RESPIRATORY DISTRESS. NO SHORTNESS OF BREATH NOTED ON ROOM AIR. AMBULATES AD [place] WITH STEADY GATE. SAFETY PRECAUTIONS IMPLEMENTED; CALL LIGHT WITHIN REACH BED LOWEST POSITION, BED LOCKED, BILATERAL UPPER SIDE RAILS UP. FRIENDS AT BED SIDE. WILL CONTINUE TO MONITOR.
--- NOTE | 2019-09-03 22:15 | NUR ---
RN NOTES BLOOD SUGAR 281. PATIENT HAS INSULIN PUMP FROM HOME AND ADMINISTERED 4.5 U TO HIMSELF, STATES THE PATIENT.
[2019-09-04 03:20] VITALS: BP 148/77
[2019-09-04] MEDS: PIPERACILLIN /TAZOBACTAM 3.375 G in IV D5W 50 ML IV SCH ×2 (03:21→09:27)
[2019-09-04] MEDS: HYDROMORPHONE 1 MG/1 ML DISP.SYRIN IV PRN ×4 (03:24→09:29)
[2019-09-04 06:05] VITALS: BP 149/85
--- NOTE | 2019-09-04 06:42 | NUR ---
RN CLOSING NOTES PATIENT IN BED, ASLEEP, EASILY AROUSABLE TO VOICE. NO SIGNS OF RESPIRATORY DISTRESS. NO SHORTNESS OF BREATH NOTED ON ROOM AIR. PATIENT HAD HIS DILAUDID DOSE, NO COMPLAINTS OF PAIN/DISCOMFORT AT THIS TIME. IV SITE INTACT AND PATENT, FLUSHED, NO INFECTION/INFILTRATION. NO ACTIVE BLEEDING FROM INCISIONS. BLOOD SUGAR 97. ALL NEEDS MET AT THIS TIME. SAFETY PRECAUTIONS IMPLEMENTED; CALL LIGHT WITHIN REACH BED LOWEST POSITION, BED LOCKED, BILATERAL UPPER SIDE RAILS UP. FRIENDS AT BED SIDE. WILL CONTINUE TO MONITOR AND THEN WILL ENDORSE TO DAY SHIFT NURSE FOR CONTINUITY OF CARE.
[2019-09-04 06:45] LABS: BASOPHILS % (AUTO) 0.4 % (0.0-2.0); EOSINOPHILS % (AUTO) 6.4 % (0.0-6.0); HEMATOCRIT 41 % (39-51); HEMOGLOBIN 13.6 g/dL (13.5-17.5); LYMPHOCYTES # (AUTO) 2.9 /CMM (0.8-4.8); LYMPHOCYTES % (AUTO) 34.6 % (20.0-44.0); MEAN CORPUSCULAR HGB CONC 34 g/dl (31.0-36.0); MEAN CORPUSCULAR VOLUME 94 fL (80-96); MONOCYTES # (AUTO) 0.7 /CMM (0.1-1.30); MONOCYTES % (AUTO) 8.9 % (2.0-12.0); NEUTROPHILS # (AUTO) 4.1 /CMM (1.8-8.9); NEUTROPHILS % (AUTO) 49.7 % (43.0-81.0); PLATELET COUNT (AUTO) 217 /CMM (150-450); RED BLOOD CELL COUNT(AUTO) 4.32 MIL/uL (4.5-6.0); WHITE BLOOD COUNT (AUTO) 8.3 K/uL (4.3-11.0)
[2019-09-04 07:06] LABS: CALCIUM, SERUM 8.9 mg/dL (8.5-10.1); CREATININE 0.9 mg/dL (0.6-1.3); POTASSIUM 3.4 mmol/L (3.5-5.1)
--- NOTE | 2019-09-04 07:23 | NUR ---
RN OPENING NOTES Patient received on room air, no sob noted, patient denies pain at this time. Patient remains a.o x4 and is easily awakened. R AC # 16 S/L. Patient has insulin pump. Bed at the lowest setting, call light within reach, side rails up x2.
[2019-09-04] MEDS: BLOOD SUGAR DIAGNOSTIC 1 EACH STRIP VI SCH (07:38)
[2019-09-04 08:00] VITALS: BP 139/84
[2019-09-04] MEDS: busPIRone 5 MG TABLET PO SCH (08:04)
[2019-09-04] MEDS: PANTOPRAZOLE 40 MG VIAL IV SCH (08:06)
[2019-09-04] MEDS: ALPRAZOLAM 0.5 MG TABLET PO SCH (08:07)
[2019-09-04] MEDS ORDERED: POTASSIUM CHLORIDE 20 MEQ TAB.PRT.SR PO SCH (10:30)
--- NOTE | 2019-09-04 11:49 | NUR ---
pattern puncher notes Patient discharged at this time. No sob noted, patient denies pain at this time. Patient's surgery wound was taken a photo of and is in the chart. All paperwork signed and patient has no further questions at this time. Patient stated that he has all the personal belongings that he came here with. Patient was picked up by a private car. IV lines removed with minimal bleeding.
--- NOTE | 2019-09-04 13:40 | NUR ---
Visited pt today. Per nursing, mostly 100% po intake. S/p lap appendectomy on 09/02/19. Pt reports he has been on ketogenic diet x ~1.5 year with his friends who is also diabetic and pt states it's been working well. Pt states pt eats some carbs. No A1C available at this admission. Provided diet education to pt with handouts. Pt verbalized understanding. Noted MD order to discharge pt today.
[2019-09-04] MEDS ORDERED: VANCOMYCIN 1 GM in IV D5W 250 ML IV SCH (15:00)
== END 2019-09-04 11:45 | disposition home or self-care (01) | DRG 853 ==
LOC: ER 23:17 → ICU 09-02 00:38 → MEDSG2 09-03 11:20
PROVIDERS: ADMIT Registered Nurse; ATTEND Family Medicine
PROC: 0DTJ4ZZ Resection of Appendix, Percutaneous Endoscopic Approach (ICD-10-PCS; principal; 2019-09-02)
DX: A41.9 Sepsis, unspecified organism (principal); E10.10 Type 1 diabetes mellitus with ketoacidosis without coma; N17.0 Acute kidney failure with tubular necrosis; K35.33 Acute appendicitis with perforation, localized peritonitis, and gangrene, with abscess; E87.1 Hypo-osmolality and hyponatremia; E86.0 Dehydration; E87.6 Hypokalemia; J45.909 Unspecified asthma, uncomplicated; R65.20 Severe sepsis without septic shock; I10 Essential (primary) hypertension; Z79.4 Long term (current) use of insulin; Z83.3 Family history of diabetes mellitus; Z87.891 Personal history of nicotine dependence; K76.0 Fatty (change of) liver, not elsewhere classified
CPT/HCPCS: 36415; 71045-TC; 74018; 80048-TC; 80076-TC; 80202-TC; 81000-TC; 82010-TC; 82962-TC; 83605-TC; 83690-TC; 83735-TC; 84100-TC; 84484-TC; 85025-TC; 85610-TC; 85730-TC; 87040-TC; 87081-TC; 94799-TC; C9113; G0378; J1100; J1170; J1815; J1885; J2250; J2270; J2405; J2543; J2704; J2710; J2765; J3010; J3370; J3480; J3490; J7030; J7040; J7050; J7060

== ENCOUNTER 2021-04-17 18:18 | Emergency (ER) | payer MEDICARE, OTHER ==
[~2021-04-17] VITALS: Ht 170.2 cm; Wt 68.0 kg
[~2021-04-17 18:18] MED LIST changes: -LISI2.5T2 PO
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
[2021-04-17] MEDS ORDERED: ONDANSETRON HCL/PF 4 MG/2 ML VIAL ONE (18:41)
[2021-04-17] MEDS ORDERED: HYDROMORPHONE 1 MG/1 ML DISP.SYRIN ONE ×3 (18:41→20:33)
[2021-04-17 18:46] LABS: BASOPHILS % (AUTO) 0.6 % (0.0-2.0); EOSINOPHILS % (AUTO) 3.3 % (0.0-6.0); HEMATOCRIT 42 % (39-51); LYMPHOCYTES # (AUTO) 3.3 K/uL (0.8-4.8); LYMPHOCYTES % (AUTO) 41.8 % (20.0-44.0); MEAN CORPUSCULAR HGB CONC 34 g/dl (31.0-36.0); MEAN CORPUSCULAR VOLUME 95 fL (80-96); MONOCYTES # (AUTO) 0.6 K/uL (0.1-1.30); MONOCYTES % (AUTO) 7.1 % (2.0-12.0); NEUTROPHILS # (AUTO) 3.7 K/uL (1.8-8.9); NEUTROPHILS % (AUTO) 47.2 % (43.0-81.0); PLATELET COUNT (AUTO) 258 K/uL (150-450); RED BLOOD CELL COUNT(AUTO) 4.42 MIL/uL (4.5-6.0); WHITE BLOOD COUNT (AUTO) 7.8 K/uL (4.3-11.0)
--- NOTE | 2021-04-17 18:51 | NUR ---
pain meds given as ordered
[2021-04-17 18:57] LABS: CALCIUM, SERUM 9.3 mg/dL (8.5-10.1); CREATININE 1.1 mg/dL (0.6-1.3); POTASSIUM 3.9 mmol/L (3.5-5.1)
[2021-04-17] MEDS ORDERED: ONDANSETRON HCL/PF 4 MG/2 ML VIAL IVP ONE (19:00)
[2021-04-17] MEDS ORDERED: HYDROMORPHONE INJ 2 MG/ML DISP.SYRIN IV ONE (19:00)
[2021-04-17] MEDS ORDERED: IV NS 0.9% 1,000 ML BAG IV ONE (19:00)
[2021-04-17] MEDS ORDERED: HYDROMORPHONE 1 MG/1 ML DISP.SYRIN IV ONE ×2 (19:30→21:00)
--- NOTE | 2021-04-17 19:35 | NUR ---
c/o 07/06 facial pain Dilaudid 0.5 mg IVP PIV # 20 RAC , port # 2 - given for severe pain
--- NOTE | 2021-04-17 19:37 | NUR ---
pain meds given as ordered by DIMA Welch [facility] at bedside taking report (law enforcement)
--- NOTE | 2021-04-17 19:55 | NUR ---
[facility] Trauma team called - case presented ([phone]) case presented to the ER trauma physician by DIMA Welch
[2021-04-17] MEDS ORDERED: CEFAZOLIN 1 GM in IV D5W 50 ML IV ONE (20:00)
[2021-04-17 20:02] VITALS: BP 164/72
--- NOTE | 2021-04-17 20:10 | NUR ---
CALLED PHARMACY FOR [facility].
--- NOTE | 2021-04-17 20:53 | NUR ---
REPORT GIVEN TO AKIRA NGUYEN FOR NEHEMIAS. PT TRANSFERED TO [facility].
== END 2021-04-17 20:55 | disposition short-term general hospital (02) ==
LOC: ER 18:53
DX: S02.40FA Zygomatic fracture, left side, initial encounter for closed fracture (principal); S02.832A Fracture of medial orbital wall, left side, initial encounter for closed fracture; S02.32XA Fracture of orbital floor, left side, initial encounter for closed fracture; Y08.89XA Assault by other specified means, initial encounter; V48.0XXA Car driver injured in noncollision transport accident in nontraffic accident, initial encounter; Y92.411 Interstate highway as the place of occurrence of the external cause; M50.323 Other cervical disc degeneration at C6-C7 level; M48.02 Spinal stenosis, cervical region; Z20.822 Contact with and (suspected) exposure to COVID-19; T15.92XA Foreign body on external eye, part unspecified, left eye, initial encounter; E10.9 Type 1 diabetes mellitus without complications; Z79.4 Long term (current) use of insulin
CPT/HCPCS: 36415; 70450; 70486; 72125; 80048; 85025; 85730; 87426; 96361; 96365; 96375; 96376; 99285; A6403; J0690; J1170 ×3; J2405; J7030; J7060; C9803